=== PATIENT | male | born 1970 | race Two or more races ===

== ENCOUNTER 2025-01-04 00:21 | Emergency (ER) | payer SELFPAY ==
[2025-01-04 00:23] VITALS: BMI 25.8
[2025-01-04 00:59] VITALS: BP 137/84; PULSE 78; RESP 16; TEMP 37; O2SAT 96
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
== END 2025-01-04 01:43 ==
LOC: SERX 01:16
PROVIDERS: Emergency Provider Emergency Medicine
DX: Z04.1 Encounter for examination and observation following transport accident (principal)
CPT/HCPCS: 99281